=== PATIENT | male | born 1980 | race Caucasian/White ===

== ENCOUNTER → 2019-08-12 | Outpatient (CLI) | payer OTHER ==
--- NOTE | 2019-08-12 08:06 | RAD ---
FACIAL BONES 1-2V 08/12/2019 12:00 AM INDICATION: Facial trauma one week ago. Bruising to the left eye. COMPARISON: None available. TECHNIQUE: 2 views of the facial bones are provided. FINDINGS/ IMPRESSION: 1. Osseous orbits are intact. Paranasal sinuses are intact. 2. No definite acute fracture of the nasal bones. Nasal septum is minimally deviated to the right. 3. There may be mild mucosal thickening of maxillary sinuses. No air-fluid levels. 4. Skull base is intact. Electronically signed by: Rae Peters MD (08/12/2019 8:03 AM) [id number]
== END ==
LOC: RAD 07:24
PROVIDERS: ATTEND Family Medicine
DX: S09.93XA Unspecified injury of face, initial encounter (principal); J34.2 Deviated nasal septum; X58.XXXA Exposure to other specified factors, initial encounter; Y92.89 Other specified places as the place of occurrence of the external cause; Y93.89 Activity, other specified; Y99.8 Other external cause status
CPT/HCPCS: 70140